=== PATIENT | female | born 2000 | race African-American/Black ===

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

== ENCOUNTER 2022-04-30 11:06 | Emergency (ER) | payer OTHER ==
[2022-04-30 11:52] VITALS: BP 163/64; PULSE 144; RESP 24; TEMP 101; BMI 51.2
[2022-04-30] MEDS ORDERED: ACETAMINOPHEN 500 MG TABLET (FP) PO ONE ×2 (12:29→12:31)
[2022-04-30] MEDS ORDERED: IBUPROFEN 400 MG TABLET (FP) PO ONE (12:30)
[2022-04-30] MEDS ORDERED: ACETAMINOPHEN 325 MG TABLET (FP) ONE (12:35)
[2022-04-30] MEDS ORDERED: IBUPROFEN 100 MG/5 ML UNIT DOSE CUPS ONE (12:35)
[2022-04-30] MEDS ORDERED: ALBUTEROL SO4 2.5/IPRATROPIUM 0.5 INH SOL 3 ML VIAL.NEB. NEB ONE ×3 (12:42→12:59)
[2022-04-30] MEDS ORDERED: DEXAMETHASONE 4 MG TABLET (FP) ONE (12:43)
[2022-04-30] MEDS ORDERED: DEXAMETHASONE 0.5 MG TABLET PO ONE (12:45)
== END 2022-04-30 14:11 | disposition home or self-care (01) ==
LOC: JER 11:06
PROC: 3E0F7GC Introduction of Other Therapeutic Substance into Respiratory Tract, Via Natural or Artificial Opening (ICD-10-PCS; principal; 2022-04-30)
DX: J09.X2 Influenza due to identified novel influenza A virus with other respiratory manifestations (principal)
CPT/HCPCS: 0241U-QW; 99283-25; J8540

== ENCOUNTER 2022-11-04 11:38 | Emergency (ER) | payer OTHER ==
[2022-11-04 12:05] VITALS: BP 148/73; PULSE 117; RESP 22; TEMP 98.2; BMI 52.7
[2022-11-04] MEDS ORDERED: ALBUTEROL SO4 2.5/IPRATROPIUM 0.5 INH SOL 3 ML VIAL.NEB. NEB ONE ×2 (12:57→13:00)
[2022-11-04] MEDS ORDERED: LORATADINE 10 MG TABLET PO ONE (12:57)
[2022-11-04] MEDS ORDERED: IBUPROFEN 600 MG TABLET (FP) PO ONE ×2 (12:57→13:00)
[2022-11-04] MEDS ORDERED: LORATADINE 10 MG TABLET ONE (13:00)
== END 2022-11-04 14:29 | disposition home or self-care (01) ==
LOC: JERFT 11:38
PROC: 3E0F7GC Introduction of Other Therapeutic Substance into Respiratory Tract, Via Natural or Artificial Opening (ICD-10-PCS; principal; 2022-11-04)
DX: R05.9 Cough, unspecified (principal); R07.0 Pain in throat; R06.7 Sneezing; R09.81 Nasal congestion; R09.89 Other specified symptoms and signs involving the circulatory and respiratory systems; M79.10 Myalgia, unspecified site; J35.1 Hypertrophy of tonsils; J02.0 Streptococcal pharyngitis
CPT/HCPCS: 87070; 87651; 93005; 93010; 99283-25

== ENCOUNTER 2023-02-28 11:35 | Emergency (ER) | payer BC, OTHER ==
[2023-02-28 11:49] VITALS: BP 136/85; PULSE 104; RESP 24; TEMP 98.5; BMI 51.5
[2023-02-28] MEDS ORDERED: ACETAMINOPHEN 500 MG TABLET (FP) PO ONE (12:43)
[2023-02-28] MEDS ORDERED: ONDANSETRON 4 MG TABLET PO ONE ×2 (12:43→12:52)
[2023-02-28] MEDS ORDERED: ACETAMINOPHEN 500 MG TABLET (FP) ONE (12:52)
[2023-02-28 13:06] LABS: EPI CELLS >36 /uL (0-25.1); HYALINE CASTS 2 /uL (0-3.1); PH,URINE 6.5 (5.0-8.0); URINE APPEARANCE CLEAR; URINE BACTERIA 1682 /uL (0-1359); URINE BILIRUBIN NEGATIVE (NEGATIVE); URINE COLOR YELLOW; URINE GLUCOSE (UA) NEGATIVE (NEGATIVE); URINE KETONE TRACE (NEGATIVE); URINE LEUK ESTERASE NEGATIVE (NEGATIVE); URINE NITRITE NEGATIVE (NEGATIVE); URINE PROTEIN 1+ (NEGATIVE); URINE RBC 14 /uL (0-23.9); URINE WBC 34 /uL (0-25.8)
[2023-02-28 13:34] LABS: THROAT:GRP A STREP DETECTED (NOTDETECTED)
== END 2023-02-28 14:15 | disposition home or self-care (01) ==
LOC: JERFT 11:35
DX: R11.2 Nausea with vomiting, unspecified (principal); R51.9 Headache, unspecified; J02.0 Streptococcal pharyngitis; Z20.822 Contact with and (suspected) exposure to COVID-19
CPT/HCPCS: 0241U-QW; 36415; 81003; 84703; 87086; 87491; 87591; 87651; 87661; 99283-25